=== PATIENT | female | born 1975 | race Hispanic/Latino ===

== ENCOUNTER 2023-12-07 08:35 | Day surgery (SDC) | payer OTHER ==
[2023-12-07] VITALS (11 sets, daily range): BP systolic 100–119; BP diastolic 50–77; PULSE 61–69; RESP 15–17
[~2023-12-07] VITALS: Ht 162.6 cm; Wt 77.1 kg
[2023-12-07] MEDS: 0.9%NACL 1000ML 1,000 ML IV ONE (09:28)
[2023-12-07] MEDS ORDERED: PROPOFOL 10 MG/ML 20ML VIAL IV ONE (10:23)
== END 2023-12-07 11:38 | disposition home or self-care (01) ==
LOC: ENDO 08:35 → DAH 08:35 → ENDO 11:38
PROVIDERS: ATTEND Internal Medicine Gastroenterology
DX: R93.2 Abnormal findings on diagnostic imaging of liver and biliary tract (principal); K86.2 Cyst of pancreas; K86.9 Disease of pancreas, unspecified; K83.8 Other specified diseases of biliary tract; E78.00 Pure hypercholesterolemia, unspecified; Z98.84 Bariatric surgery status; Z90.49 Acquired absence of other specified parts of digestive tract; Z79.899 Other long term (current) drug therapy
CPT/HCPCS: 81025; 43259; J7030 ×2; J2704; A4620; A4215 ×2; A4223; A7002; A4222; A4221; A4663; A4606; J3490